=== PATIENT | female | born 1995 | race Caucasian/White ===

== ENCOUNTER 2018-06-20 16:27 | Emergency (ER) | payer OTHER ==
[2018-06-20 16:46] VITALS: BP 125/81
--- NOTE | 2018-06-20 17:11 | UC ---
Elbow Pain - HPI Summary HPI Summary: Patient presents to urgent care for evaluation of her right elbow. Patient states it possibly 6 days ago she slipped on the ice landing on her right elbow , medial aspect. Patient is right-hand dominant. Patient states no open wounds. Patient was evaluated by the hop strainer at [employer] where her family works. Patient states she was placed in a sling has been taking ice and using Motrin. Patient states she continues to have pain today center tonight to have an x-ray for evaluation of fracture. Patient states she's had paresthesias in her ring and fifth finger. Patient stated that this related to some inflammation by the nerve. Patient has any hand weakness. Patient without any other injuries. Patient is not on any anticoagulant. Patient without previous injury to same. Patient states she is not . - History of Current Complaint Chief Complaint: UCUpperExtremity Stated Complaint: RT ELLOW INJURY Time Seen by Provider: 06/20/18 17:07 Hx Obtained From: Patient Hx Last Menstrual Period: [id number] Pain Intensity: 5 - Allergies/Home Medications Allergies/Adverse Reactions: Allergies Allergy/AdvReac Type Severity Reaction Status Date / Time No Known Allergies Allergy Verified 06/20/18 16:47 Home Medications: Home Medications Levonorgestrel-Ethin Estradiol [Larissia 0.1-20 mg-Mcg] 1 tab PO DAILY 06/20/18 [History Confirmed 06/20/18] PMH/Surg Hx/FS Hx/Imm Hx Previously Healthy: Yes - Surgical History Surgical History: None - Family History Known Family History: Positive: Non-Contributory - Social History Occupation: Student Lives: Dormitory/Roommates Alcohol Use: Weekly Substance Use Type: None Smoking Status (MU): Never Smoked Tobacco Review of Systems All Other Systems Reviewed And Are Negative: Yes Constitutional: Positive: Negative Skin: Positive: Bruising Eyes: Positive: Negative ENT: Positive: Negative Respiratory: Positive: Negative Motor: Positive: Other - right elbow pain Physical Exam - Summary Physical Exam Summary: Vital Signs Reviewed: Yes A+Ox3, no distress Eyes: Conjunctiva Clear ENT: Hearing grossly normal neck: supple Respiratory: Positive: No respiratory distress, No accessory muscle use Cardiovascular: 2+ radial, ulnar CBT < 2 sec Musculoskeletal Exam: \\ flext/ext elbow with discomfort distal bicep, mild discomfort with direct palp. medial condyl and olecranon. no crepitus + pronate/supinate with pain in similar Neurological: Positive: Alert, ambulatory without difficulty + thumb up, a ok, finger cross, finger spread 5/5 grasp + grpss sensation with mild decrease / 5th Psychological: Positive: Normal Response To Family Skin: Positive: no rash, resolving ecchymosis medial aspect elbow.no open wound Triage Information Reviewed: Yes Vital Signs: Initial Vital Signs Temp 98.8 F 06/20/18 16:42 Pulse 70 06/20/18 16:42 Resp 16 06/20/18 16:42 BP 125/81 06/20/18 16:42 Pulse Ox 100 06/20/18 16:42 Diagnostics - Radiology No standard instances Radiology Interpretation Completed By: Radiologist - Patient Name: KYRIE CONCEPCION Medical Record#: [id number] Ordering Physician: Mirian Gibbs MD Acct.#: [id number] : 1995 Age: 22 Sex: F Location: [facility] Exam Date: 06/20/181651 ADM Status: REG ER Order Information: ELBOW RIGHT 3+ VWS Accession Number: [id number] CPT: 47511 INDICATION: Right elbow injury. TECHNIQUE: 4 views of the right elbow were obtained. FINDINGS: The bones are in normal alignment. No joint effusion or fracture is seen. Joint spaces appear maintained. IMPRESSION: NO EVIDENCE FOR FRACTURE. <Electronically signed by Nils Wild MD in OV> 06/20/181716 Dictated By: Nils Wild MD Dictated Date/Time: 1716 Transcribed Date/Time: 06/20/181715 Copy to: CC:Mirian Gibbs MD ; No Primary Care Phys,NOPCP Imaging - [facility] Imaging - [facility] [address] [address] ph ([phone]) ph ([phone]) ph ([phone]) This report is only to be considered final once signed by the Provider(s) as displayed in the "<Electronically Signed by >" field (s). Absence of a signature indicates the report is in a draft status and still needs to be finalized. In the event this document was created by someone other than the signing Provider, the individual initiating the document will be listed in the "Entered by:" or "Dictated by:" agrawal. 1 of 1 Elbow Pain Course/Dx - Course Course Of Treatment: Patient slipped on the ice approximately 6 days ago landing on her right dominant elbow. Patient with persistent pain in the right elbow as well as some paresthesias of the ring and fifth finger in the same hand. Patient has been icing and wearing a sling. On exam patient with discomfort at the distal part of the bicep with range of motion of the elbow. Patient with point tenderness the medial aspect of the elbow as well as on the medial aspect of the olecranon. Patient with resolving ecchymosis and no open wound. Distal CSM intact. Imaging shows no acute fracture. Recommend patient follow up with sports medicine orthopedics. Patient has a sling discussed range of motion. Ice. Motrin Tylenol. Patient comfortable in agreement with plan. Patient declined a copy of her imaging for follow-up appointment. - Differential Dx/Diagnosis Provider Diagnosis: Injury of right elbow Discharge - Sign-Out/Discharge Documenting (check all that apply): Patient Departure All imaging exams completed and their final reports reviewed: Yes - Discharge Plan Condition: Stable Disposition: HOME Patient Education Materials: Contusion in Adults (ED), Elbow Sprain (ED) Referrals: [facility] [Provider Group] Joni Dumas MD [Medical Doctor] - No Primary Care Phys,NOPCP [Primary Care Provider] - Additional Instructions: -wear sling for comfort and support. relax your shoulder so the sling holds the weight of your shoulder - Take your arm outside of your sling and fully bend/stretching of elbow and makes small circles at your shoulder as demonstrated in the urgent car -apply ice (20 min at a time) every 5-6 hours --Okay to alternate ibuprofen (Advil, Motrin) 600mg and Tylenol 1000mg every 3 hours for pain. Take with food. Do NOT take for more than 4-5 days. C -Contact the orthopedic provider or the sports medicine provider to schedule a follow-up appointment. . Contact your doctor or return with questions or concerns - Billing Disposition and Condition Condition: STABLE Disposition: Home
== END 2018-06-20 17:45 | disposition home or self-care (01) ==
LOC: UCEAST 16:27
DX: S59.901A Unspecified injury of right elbow, initial encounter (principal); W00.0XXA Fall on same level due to ice and snow, initial encounter; Y92.9 Unspecified place or not applicable
CPT/HCPCS: 99201; G0463